=== PATIENT | female | born 1945 | race Caucasian/White ===

== ENCOUNTER → 2017-05-23 08:25 | Emergency (ER) | payer MEDICARE ==
[~2017-05-23 08:25] MED LIST: Acetaminophen TAB* 325 MG PO ONE; Ketorolac INJ* 60 MG/2 ML VIAL IM ONE; Lidocaine PATCH 5%* 1 PATCH TRANSDERM ONE; Lidocaine Patch REMOVE* 1 NOTE MISC SCH
--- NOTE | 2017-05-23 10:17 | ED ---
Back Pain - HPI Summary HPI Summary: Pt here w/ Rt SI joint pain x 2.5 weeks. Worse w/ transition from sitting to standing, lying flat. Pain is not consistent w/ standing/bearing weight - comes and goes. Denies radiating pain into buttock or down leg. Best position is sitting with flexed waist in reclined position. She reports decreased appetite since this started - still drinking fluids. Denies N/V/D, fever, chills. Has baseline ab discomfort from pancreatic cancer. Has had chemo and radiation which was stopped in January 2017 as she was falling spontaneously. Gained 4lbs after stopping chemo/radiation but difficulty gaining weight since. No h/o osteoporosis, osteopenia, fx's - smokes and has IDDM. Glucose 70's this morning but reports feeling okay. She admits to taking pain medication for cancer and has been taking this for back pain as well. Saw PCP 1 week ago and per pt, XR of back revealed mild arthritis. She takes 10mg oxycodone 3-4 x day. Also takes 30mg morphine about once a day - doesn't feel this helps as much as the oxycodone. Takes miralax for bowel regulation which she reports works well. Denies dysuria, flank pain, urinary urgency. NOTE: pt reports her PCP is in the process of ordering an MRI to better asses her pain. She also admits oncologist has provided her w/ a muscle relaxer which she has not tried yet but has at home (flexeril?) - History of Current Complaint Hx Obtained From: Patient Pain Intensity: 5 <Sosa Vidal - Last Filed: 05/23/17 11:44> <Vivian Guzmán - Last Filed: 05/24/17 07:44> - History of Current Complaint Chief Complaint: EDBackInjuryPain Stated Complaint: BACK PAIN Time Seen by Provider: 05/23/17 09:18 - Allergies/Home Medications Allergies/Adverse Reactions: Allergies Allergy/AdvReac Type Severity Reaction Status Date / Time Tetracycline Allergy Rash Verified 05/23/17 08:27 PMH/Surg Hx/FS Hx/Imm Hx Previously Healthy: Yes Endocrine/Hematology History: Reports: Hx Anticoagulant Therapy - coumadin for h /o CVA, Hx Diabetes - IDDM Denies: Hx Systemic Lupus Erythematosus Cardiovascular History: Reports: Hx Hypercholesterolemia Denies: Hx Congestive Heart Failure, Hx Hypertension Respiratory History: Denies: Hx Chronic Obstructive Pulmonary Disease (COPD), Other Respiratory Problems/Disorders GI History: Reports: Other GI Disorders - pancreatic cancer Denies: Hx Gastroesophageal Reflux Disease History: Denies: Hx Dialysis, Hx Renal Disease Musculoskeletal History: Reports: Hx Arthritis - "mild back arthritis" Denies: Hx Rheumatoid Arthritis Neurological History: Reports: Hx CVA, Other Neuro Impairments/Disorders - CVA 2006 - Cancer History Cancer Type, Location and Year: pancreatic CA Hx Chemotherapy: Yes Hx Radiation Therapy: Yes - Surgical History Surgery Procedure, Year, and Place: X 2. ganglion cyst removal from Left foot Infectious Disease History: No Infectious Disease History: Denies: Traveled Outside the [place] in Last 30 Days - Family History Known Family History: Positive: Other - lung cancer Negative: Cardiac Disease - Social History Occupation: Retired Lives: With Family Alcohol Use: None Hx Substance Use: No Substance Use Type: Reports: None Hx Tobacco Use: Yes Smoking Status (MU): Current Every Day Smoker Amount Used/How Often: 1/2 ppd Have You Smoked in the Last Year: Yes <Sosa Vidal - Last Filed: 05/23/17 11:44> Review of Systems Constitutional: Other - decreased appetite Negative: Fever, Chills, Fatigue Cardiovascular: Negative Negative: Palpitations, Chest Pain Respiratory: Negative Negative: Shortness Of Breath, Cough Gastrointestinal: Other - see HPI Genitourinary: Negative Positive: see HPI Musculoskeletal: Other - see HPI Skin: Negative Negative: Rash, Bruising Neurological: Negative Negative: Headache, Weakness, Paresthesia, Numbness Psychological: Normal All Other Systems Reviewed And Are Negative: Yes <Sosa Vidal - Last Filed: 05/23/17 11:44> Physical Exam Triage Information Reviewed: Yes Vital Signs On Initial Exam: Initial Vitals Temp Pulse Resp BP Pulse Ox 98.6 F 87 18 148/75 99 05/23/17 08:27 05/23/17 08:27 05/23/17 08:27 05/23/17 08:27 05/23/17 08:27 Vital Signs Reviewed: Yes Appearance: Positive: Well-Appearing, No Pain Distress - at rest sitting reclied on stretcher - pain w/ transitioning to sitting position, Thin Skin: Positive: Warm, Dry - no erythema, no ecchymosis no rash over affected area Head/Face: Positive: Normal Head/Face Inspection Eyes: Positive: Normal, EOMI, Conjunctiva Clear - anicteric sclera ENT: Positive: Normal ENT inspection, Hearing grossly normal, Pharynx normal - mucosa moist. Negative: Nasal congestion, Nasal drainage Neck: Positive: Supple, Nontender Respiratory/Lung Sounds: Positive: Clear to Auscultation, Breath Sounds Present. Negative: Rales, Rhonchi, Wheezes Cardiovascular: Positive: Normal, RRR, Pulses are Symmetrical in both Upper and Lower Extremities, S1, S2. Negative: Murmur, Rub, Leg Edema Left, Leg Edema Right - (-) Ion's Abdomen Description: Positive: No Organomegaly, Soft, Other: - mild TTP over upper ab - pt reports this is baseline for her - no rebounding. Negative: CVA Tenderness (R), CVA Tenderness (L) Bowel Sounds: Positive: Present Musculoskeletal: Positive: Strength/ROM Intact, Pain @ - Rt SI is TTP - no gross deformity, Other - (-) SLR B/L; spinous pp and paraspinal mm NTTP Neurological: Positive: Normal, Sensory/Motor Intact, Alert, Oriented to Person Place, Time, CN Intact II-III Psychiatric: Positive: Normal <Sosa Vidal - Last Filed: 05/23/17 11:44> Vital Signs On Initial Exam: Initial Vitals Temp Pulse Resp BP Pulse Ox 98.6 F 87 18 148/75 99 05/23/17 08:27 05/23/17 08:27 05/23/17 08:27 05/23/17 08:27 05/23/17 08:27 <Vivian Guzmán - Last Filed: 05/24/17 07:44> Diagnostics - Vital Signs Vital Signs Temp Pulse Resp BP Pulse Ox 05/23/17 09:30 67 140/63 99 05/23/17 09:00 64 98 05/23/17 08:42 98.6 F 87 18 148/75 99 05/23/17 08:41 73 99 05/23/17 08:39 173/56 05/23/17 08:27 98.6 F 87 18 148/75 99 <Sosa Vidal - Last Filed: 05/23/17 11:44> - Vital Signs Vital Signs Temp Pulse Resp BP Pulse Ox 05/23/17 10:30 64 147/64 100 05/23/17 10:00 64 161/63 97 05/23/17 09:30 67 140/63 99 05/23/17 09:00 64 98 05/23/17 08:42 98.6 F 87 18 148/75 99 05/23/17 08:41 73 99 05/23/17 08:39 173/56 05/23/17 08:27 98.6 F 87 18 148/75 99 <Vivian Guzmán - Last Filed: 05/24/17 07:44> Back Pain Course/Dx - Course Course Of Treatment: Pt appears to have SI inflammation. Unfortunately, she cannot take NSAID's as she takes coumadin for h/o CVA. She can however try acetaminophen and lidocaine patch here. Does not appear to have lytic lesions in the area. Pt also reports she was given flexeril by oncologist and has not tried yet (has these at home). Advise trying acetaminophen, lidocaine patch and flexeril (the latter before bed as this may cause drowsiness). Advise close f/u w/ PCP for MRI as necessary. Reviewed danger s/sx of when to return to ED. <Sosa Vidal - Last Filed: 05/23/17 11:44> <Vivian Guzmán - Last Filed: 05/24/17 07:44> - Diagnoses Provider Diagnoses: Sacroiliitis Discharge <Sosa Vidal - Last Filed: 05/23/17 11:44> <Vivian Guzmán - Last Filed: 05/24/17 07:44> - Discharge Plan Condition: Stable Disposition: HOME Prescriptions: Lidocaine PATCH 5%* [Lidoderm 5% Patch*] 1 patch TRANSDERM DAILY #20 patch Patient Education Materials: Sacroiliitis (ED) Referrals: Douglas Chavis MD [Primary Care Provider] - Additional Instructions: You appear to have sacroiliitis, inflammation of the sacroiliac joint. Since you area unable to take NSAID's with your coumadin, it is advised that you try acetaminophen 650mg every 6 hours and lidoderm pain patches. You may continue you home pain meds as directed. Follow-up with PCP today to inquire about use of steroids for inflammation control as well as pending MRI status. *If you develop fever, chills, nausea, vomiting, diarrhea and/or weakness, numbness in LE, worsening pain despite medications, return to ED immediately for blood work and imaging. Attestation Statement User Type: Provider - I was available for consult. This patient was seen by the SHASHANK. The patient was not presented to, seen by, or examined by me. -Elise <Vivian Guzmán - Last Filed: 05/24/17 07:44> Addendum entered and electronically signed by Sosa Vidal PA 05/23/17 11:45: ED Addendum Addendum: NOTE: CT not performed today as pt reports her INR is WNL as of yesterday and no injuries or trauma to area. No soft tissue tenderness - only SI joint tenderness. Explained to daughter and pt is sx persist or worse to return to ED.
[2017-05-23 10:43] VITALS: BP 147/64
--- NOTE | 2017-05-23 11:06 | RAD ---
HISTORY: Right SI joint pain, history of pancreatic cancer COMPARISONS: None VIEWS: 3, frontal and bilateral oblique views of the SI joints FINDINGS: BONE DENSITY: Normal. BONES: There is no displaced fracture. JOINTS: There is mild osteoarthritis of the hips and SI joints bilaterally. ALIGNMENT: There is no dislocation. SOFT TISSUES: Unremarkable. OTHER FINDINGS: None. IMPRESSION: OSTEOARTHRITIS. NO ACUTE OSSEOUS INJURY. IF SYMPTOMS PERSIST, RECOMMEND REPEAT IMAGING.
== END | disposition home or self-care (01) ==
LOC: ED 08:25
DX: M46.1 Sacroiliitis, not elsewhere classified (principal); Z79.4 Long term (current) use of insulin; E11.9 Type 2 diabetes mellitus without complications; Z86.73 Personal history of transient ischemic attack (TIA), and cerebral infarction without residual deficits; Z79.01 Long term (current) use of anticoagulants; E78.00 Pure hypercholesterolemia, unspecified; Z85.07 Personal history of malignant neoplasm of pancreas; F17.210 Nicotine dependence, cigarettes, uncomplicated
CPT/HCPCS: 72202; 96372; 99282; A9270-GY

== ENCOUNTER 2017-11-17 11:02 | Emergency (ER) | payer MEDICARE ==
--- NOTE | 2017-11-17 12:09 | RAD ---
HISTORY: Dizziness, fall COMPARISONS: August 06, 2014 TECHNIQUE: Multiple contiguous axial CT scans were obtained of the head without intravenous contrast. FINDINGS: HEMORRHAGE/INFARCT: There is no hemorrhage or acute infarct. MASSES/SHIFT: There is no mass or shift. EXTRA-AXIAL SPACES: There are no extra-axial fluid collections. SULCI AND VENTRICLES: The sulci and ventricles are normal in size and position for the patient's stated age. CEREBRUM: There are no focal parenchymal abnormalities. BRAINSTEM: There are no focal parenchymal abnormalities. CEREBELLUM: There are no focal parenchymal abnormalities. VESSELS: The vessels are grossly normal. PARANASAL SINUSES: The paranasal sinuses are clear. ORBITS: The orbits are unremarkable. BONES AND SOFT TISSUE: There is simultaneous nodules of the scalp consistent with epidermal inclusion cysts, including a cyst of the frontal scalp that is new compared to 2014. OTHER: None IMPRESSION: NO ACUTE INTRACRANIAL PATHOLOGY.
--- NOTE | 2017-11-17 12:14 | RAD ---
INDICATION: Dizziness. COMPARISON: Comparison is made with prior study from August 07, 2016. TECHNIQUE: A portable view of the chest was obtained. FINDINGS: Cardiac and mediastinal contours appear to be within normal limits. There is a central venous catheter on the right side. The catheter tip is in the right paratracheal region. The lungs are clear. No pleural effusion is seen. IMPRESSION: NO EVIDENCE FOR ACUTE DISEASE.
--- NOTE | 2017-11-17 12:20 | RAD ---
Indication: Fall, dizziness. CT of the cervical spine was obtained in the axial plane. Sagittal and coronal reconstructed images were obtained. Mastoid air cells and paranasal sinuses are unremarkable. Degenerative changes of the atlantoaxial joint is noted. Osteophyte formation is noted. No fracture is noted. The C1 ring is intact. The vertebral bodies appear normal in height. No fracture is noted. Disc space narrowing at C4-C5 is noted with spondylytic ridge, left uncovertebral hypertrophy narrowing the left foramen. At C5-C6, C6-C7 and C7-T1 the lung bases are unremarkable. 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 Degenerative disc disease at C4-C5 spondylitic ridge and left uncovertebral hypertrophy narrowing the left foramen.
[2017-11-17 12:42] LABS: ABS Basophils 0 10^3/ul (0-0.2); ABS Eosinophils 0 10^3/ul (0-0.6); ABS Lymphocytes 0.1 10^3/ul (1.0-4.8); ABS Monocytes 0.3 10^3/ul (0-0.8); ABS Neutrophils 4.4 10^3/ul (1.5-7.7); ABS Nucleated RBC 0 10^3/ul; Eosinophil % 0 % (0-6); Hematocrit 31 % (35-47); Hemoglobin 10.6 g/dl (12.0-16.0); Lymphocyte % 2.9 % (25-47); Mean Corpuscular HGB Conc 34 g/dl (31-36); Mean Corpuscular Hemoglobin 37 pg (27-31); Mean Corpuscular Volume 108 fL (80-97); Mean Platelet Volume 9 um3 (7.4-10.4); Nucleated Red Blood Cells % 0; Platelet Count 195 10^3/ul (150-450); Red Blood Count 2.83 10^6/ul (4.0-5.4); Red Cell Distribution Width 19 % (10.5-15); White Blood Count 4.9 10^3/ul (3.5-10.8)
[2017-11-17 12:44] LABS: INR 1.61 (0.77-1.02)
[2017-11-17 13:03] LABS: EGFR Non-African American 121.6 (>60)
[2017-11-17] MEDS ORDERED: NS 0.9% 1000 ML* 1,000 ML IV ONE (13:38)
[2017-11-17] MEDS ORDERED: Ondansetron INJ* 2 MG/ML VIAL ONE (14:01)
[2017-11-17] MEDS ORDERED: Ondansetron INJ* 2 MG/ML VIAL IV ONE (14:03)
[2017-11-17 14:25] LABS: Urine Appearance Clear; Urine Blood 1+ (Negative); Urine Color Yellow; Urine Ketones Negative (Negative); Urine Protein Negative (Negative); Urine Specific Gravity 1.009 (1.010-1.030); Urine Urobilinogen Negative (Negative)
[2017-11-17 15:10] VITALS: BP 158/61
--- NOTE | 2017-11-17 18:15 | ED ---
Claudia Ortiz Thomas, scribed for Alexandr Santillan MD on 11/17/17 at 1137 . Complex/Multi-Sys Presentation - HPI Summary HPI Summary: The patient is a 72 year old female who woke up this morning with sweats. On the way to the bathroom, she had a fall due to lightheadedness and struck her head on the floor. She did not have consciousness. The patient had diarrhea after falling. She also complains of chills and a cough. She was referred to the ED by KEENAN Madrigal. - History Of Current Complaint Chief Complaint: EDHeadInjury Time Seen by Provider: 11/17/17 11:26 Hx Obtained From: Patient Onset/Duration: Lasting Hours - earlier today Timing: Constant Severity Initially: Moderate Location: Negative Aggravating Factor(s): None Alleviating Factor(s): None Associated Signs And Symptoms: Positive: Other - Sweats, chills, lightheadedness , diarrhea, cough; NEGATIVE: LOC - Allergies/Home Medications Allergies/Adverse Reactions: Allergies Allergy/AdvReac Type Severity Reaction Status Date / Time Tetracyclines Allergy Rash Verified 11/09/17 07:41 Home Medications: Home Medications Acetaminophen TAB* [Tylenol TAB*] 650 mg PO Q6H PRN 11/17/17 [History Confirmed 11/17/17] Cannabis Oil 2 - 3 drop SL DAILY PRN 11/17/17 [History Confirmed 11/17/17] Morphine TAB Extended Rel(*) [Ms Contin(*)] 30 mg PO QID PRN MDD 120mg 11/17/17 [History Confirmed 11/17/17] Ondansetron ODT TAB* [Zofran 4 MG Odt TAB*] 4 mg PO Q6H PRN 11/17/17 [History Confirmed 11/17/17] oxyCODONE TAB* [Roxycodone TAB 5 mg*] 5 mg PO Q6H PRN 11/17/17 [History Confirmed 11/17/17] PMH/Surg Hx/FS Hx/Imm Hx Endocrine/Hematology History: Reports: Hx Anticoagulant Therapy - coumadin for h /o CVA, Hx Diabetes Denies: Hx Systemic Lupus Erythematosus Cardiovascular History: Reports: Hx Hypercholesterolemia, Other Cardiovascular Problems/Disorders - IDDM II Denies: Hx Congestive Heart Failure, Hx Hypertension, Hx Pacemaker/ICD Respiratory History: Denies: Hx Chronic Obstructive Pulmonary Disease (COPD), Other Respiratory Problems/Disorders GI History: Reports: Other GI Disorders - pancreatic cancer Denies: Hx Gastroesophageal Reflux Disease History: Denies: Hx Dialysis, Hx Renal Disease Musculoskeletal History: Reports: Hx Arthritis - "mild back arthritis" Denies: Hx Rheumatoid Arthritis Sensory History: Denies: Hx Hearing Aid Neurological History: Reports: Hx CVA, Other Neuro Impairments/Disorders - CVA 2006 Psychiatric History: Denies: Hx Panic Disorder - Cancer History Cancer Type, Location and Year: pancreatic CA Hx Chemotherapy: No Hx Radiation Therapy: Yes - Surgical History Surgery Procedure, Year, and Place: X 2. ganglion cyst removal from Left foot Infectious Disease History: No Infectious Disease History: Denies: Traveled Outside the [place] in Last 30 Days - Family History Known Family History: Positive: Other - lung cancer Negative: Cardiac Disease - Social History Alcohol Use: None Hx Substance Use: No Substance Use Type: Reports: None Hx Tobacco Use: Yes Smoking Status (MU): Current Every Day Smoker Amount Used/How Often: 1/2 ppd Have You Smoked in the Last Year: Yes Review of Systems Positive: Chills, Other - Sweats. Negative: Fever Positive: Cough Positive: Diarrhea Neurological: Negative - LOC, Other - Lightheadedness All Other Systems Reviewed And Are Negative: Yes Physical Exam - Summary Physical Exam Summary: VITAL SIGNS: Reviewed. GENERAL: Patient is an elderly, fragile female who is lying comfortable in the stretcher. Patient is not in any acute respiratory distress. HEAD AND FACE: No signs of trauma. No ecchymosis, hematomas or skull depressions. No sinus tenderness. EYES: PERRLA, EOMI x 2, No injected conjunctiva, no nystagmus. EARS: Hearing grossly intact. Ear canals and tympanic membranes are within normal limits. MOUTH: Oropharynx within normal limits. Dry oral mucosa. NECK: Supple, trachea is midline, no adenopathy, no JVD, no carotid bruit, no c- spine tenderness, neck with full ROM. CHEST: Symmetric, no tenderness at palpation LUNGS: Crackles in both bases of the lungs. CVS: Regular rate and rhythm, S1 and S2 present, no murmurs or gallops appreciated. ABDOMEN: Soft, non-tender. No signs of distention. No rebound no guarding, and no masses palpated. Bowel sounds are normal. EXTREMITIES: FROM in all major joints, no edema, no cyanosis or clubbing. NEURO: Alert and oriented x 3. No acute neurological deficits. Speech is normal and follows commands. SKIN: Dry and warm Triage Information Reviewed: Yes Vital Signs On Initial Exam: Initial Vitals Temp Pulse Resp BP Pulse Ox 97.7 F 64 20 151/79 100 11/17/17 11:14 11/17/17 11:14 11/17/17 11:14 11/17/17 11:14 11/17/17 11:14 Vital Signs Reviewed: Yes Diagnostics - Vital Signs Vital Signs Temp Pulse Resp BP Pulse Ox 11/17/17 11:14 97.7 F 64 20 151/79 100 - Laboratory Result Diagrams: 11/17/17 12:14 11/17/17 12:00 Lab Statement: Any lab studies that have been ordered have been reviewed, and results considered in the medical decision making process. - Radiology CXR Xray Interpretation: No Acute Changes - NO EVIDENCE FOR ACUTE DISEASE. Dr. Santillan has reviewed this report. Radiology Interpretation Completed By: Radiologist - CT CT Brain CT Interpretation: No Acute Changes - NO ACUTE INTRACRANIAL PATHOLOGY. Dr. Santillan has reviewed this report. 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 Degenerative disc disease at C4-C5 spondylitic ridge and left uncovertebral hypertrophy narrowing the left foramen. Dr. Santillan has reviewed this report. CT Interpretation Completed By: Radiologist Complex Multi-Symp Course/Dx Assessment/Plan: The patient is a 72 year old female who woke up this morning with sweats. On the way to the bathroom, she had a fall due to lightheadedness and struck her head on the floor. She did not have loss of consciousness. The patient had diarrhea after falling. She also complains of chills and a cough. She was referred to the ED by KEENAN Madrigal. Test results are without significant abnormalities except a chronic anemia. Urinalysis is negative for UTI. CXR shows no evidence for acute disease. In the ED course, the patient was given IV fluids. The patient is feeling better. At this point, she is ambulating without any dizziness. At this point, the patient is discharged home to follow up with primary care. I discussed the plan with the patient and the patients daughter, and they agree. - Diagnoses Provider Diagnoses: Dizziness, Accidental fall Discharge - Discharge Plan Condition: Stable Disposition: HOME Patient Education Materials: Fall Prevention for Older Adults (ED), Dizziness ( ED) Referrals: Douglas Chavis MD [Primary Care Provider] - 3 Days Additional Instructions: Follow up with your primary care physician in three days. Return to the emergency department for any new or worsening symptoms. The documentation as recorded by the Claudia torres Thomas accurately reflects the service I personally performed and the decisions made by me, Alexandr Santillan MD.
== END 2017-11-17 15:10 | disposition home or self-care (01) ==
LOC: ED 11:02
DX: R42 Dizziness and giddiness (principal); R05 Cough; R68.83 Chills (without fever); S09.90XA Unspecified injury of head, initial encounter; W19.XXXA Unspecified fall, initial encounter; Y92.9 Unspecified place or not applicable; F17.200 Nicotine dependence, unspecified, uncomplicated; Z88.3 Allergy status to other anti-infective agents
CPT/HCPCS: 36415; 70450; 71045; 72125; 80053; 81003; 81015; 82550; 83605; 84484; 85025; 85610; 87040; 96361; 96374; 99283; J1642; J2405